=== PATIENT | female | born 1995 | race Hispanic/Latino ===

== ENCOUNTER → 2021-12-06 11:42 | Outpatient (CLI) | payer OTHER, SELFPAY ==
[2021-12-06 12:24] LABS: Fetal Fibronectin Negative
== END ==
PROVIDERS: Visit Provider Obstetrics & Gynecology
DX: Z34.83 Encounter for supervision of other normal pregnancy, third trimester (principal); Z3A.31 31 weeks gestation of pregnancy
CPT/HCPCS: 82731

== ENCOUNTER 2021-12-06 12:03 | Emergency (ER) | payer OTHER, SELFPAY ==
[2021-12-06] VITALS (9 sets, daily range): BP systolic 104–139; BP diastolic 61–82; PULSE 85–102; RESP 15; TEMP 36.6; O2SAT 95–100; BMI 37.8
--- NOTE | 2021-12-06 12:20 | ED_ITS ---
HPI - General Adult General Chief complaint: OB/Uterine Contractions Stated complaint: 31.5 weeks , pressure and back pain Time Seen by Provider: 12/06/21 12:13 Source: patient Mode of arrival: Ambulatory Limitations: no limitations History of Present Illness HPI narrative: Patient is an otherwise healthy 26-year-old female. She is a at approximately 31.5 weeks EGA. She is new to the area. Her 1st ended with premature rupture membranes and a and premature . Her son is 2 years old at home. She reports no other medical problems. Takes vitamins. Does note that over the past several days she has had cramping and lower back pain. She was seen prior to this visit at the OB department for 1st visit. Ultrasound was performed. She does have a IUP in head-down position. This was a bedside ultrasound. OB providers concerned about her presentation and feel that she does need transferred to facility for further evaluation. There is no bed availability in our Labor and delivery at this hospital. Patient requires observation until transfer can be established. This is in coordination with Dr. Hinojosa kennel manager dog track. Related Data Home Medications Medication Instructions Recorded Confirmed prenat.vits,claudia,[id number] 1 tab PO DAILY 12/01/21 12/06/21 Allergies Allergy/AdvReac Type Severity Reaction Status Date / Time Penicillins Allergy Mild Rash Verified 12/06/21 12:19 Review of Systems Constitutional Constitutional: Denies fever(s) and Denies headache(s) ENT Ears, Nose, Mouth, and Throat: Denies headache(s) Cardiovascular Cardiovascular: Reports system reviewed and no additional complaints, except as documented Respiratory Respiratory: Reports system reviewed and no additional complaints, except as documented Gastrointestinal Comments: Abdominal cramping Genitourinary Genitourinary: Denies dysuria Musculoskeletal Musculoskeletal: Reports back pain Integumentary/Breasts Skin/Breast: Reports system reviewed and no additional complaints, except as documented Neurologic Neurologic: Denies headache(s) Hematologic/Lymphatic On Anticoagulants: No Patient History Medical History Anxiety Bicornuate uterus Depression Gastric reflux Gastritis delivery UTI (urinary tract infection) Surgical History History of Family History Mother Diabetes mellitus Hypertension Social History marital status: number of children: 1 household members: spouse and children housing: house pets and animals: Yes (Dogs) education level: high school occupational status: unemployed current occupational exposures/hazards: No seatbelt use: always water heater temp set < 120 deg: Yes working smoke detector in home: Yes fire extinguisher in home: No carbon monox detector in home: Yes firearms in home: No do you feel safe at home: Yes Smoking Status: Never smoker second hand exposure: No alcohol intake: former substance use type: does not use during the past year weight has: decreased > 10 lbs well-balanced diet: daily or most days daily servings fruits/ve-4 caffeine: No Type(s) of exercise: walking Smoking Status: Never smoker Exam Initial Vital Signs Initial Vital Signs: Vital Signs Temperature 97.8 F 12/06/21 12:12 Pulse Rate 92 H 12/06/21 12:12 Respiratory Rate 15 12/06/21 12:12 Blood Pressure 139/82 12/06/21 12:12 Pulse Oximetry 97 12/06/21 12:12 Const General: cooperative, comfortable and well developed HENMT Head: normal to inspection and normocephalic Resp Effort & Inspection: normal respiratory effort Auscultation: clear to auscultation bilaterally Cardio Rate: regular rate Rhythm: regular rhythm GI Other: Gravid abdomen, Skin General: no rashes or lesions noted Neuro General: patient alert, patient awake and moves all extremities Extrem General: normal to inspection Psych Appearance: grossly normal and well kempt Course Orders Ordered: Discontinued Medications Lactated Ringer's (Lactated Ringers) 1,000 mls @ 125 mls/hr IV CONT REINA Last Infusion: 12/06/21 15:47 Dose: 0 mls/hr Documented by: Admin: 12/06/21 12:47 Dose: 125 mls/hr Documented by: YUKI Vital Signs Vital signs: Vital Signs - 8 hr 12/06/21 12:12 Temperature 97.8 F Pulse Rate 92 H Respiratory Rate 15 Blood Pressure 139/82 Pulse Oximetry 97 Medical Decision Making Lab Data Result diagrams: 12/06/21 12:15 12/06/21 12:15 Labs: Lab Results 12/06/21 12/06/21 12/06/21 Range/Units 12:15 12:15 12:15 WBC 8.3 (4.5-11.0) X10^3/uL RBC 4.46 (4.0-5.2) X10^6/uL Hgb 12.0 (12.0-16.0) g/dL Hct 36.7 (36-46) % MCV 82.3 (80-100) fL MCH 27.0 (26-34) PG MCHC 32.8 (30-36) % RDW 14.5 (11.6-14.8) % Plt Count 217 (150-400) X10^3/uL Neut % (Auto) 80.4 H (50-75) % Lymph % (Auto) 15.4 L (25-40) % [place] % (Auto) 3.7 (3-14) % Eos % (Auto) 0.1 L (2-4) % Baso % (Auto) 0.4 (0-2) % Neut # (Auto) 6700 (7338-7222) /uL Lymph # (Auto) 1300 (1638-2037) /uL [place] # (Auto) 300 (0-900) /uL Eos # (Auto) 0 (0-450) /uL Baso # (Auto) 0 (0-100) /uL Sodium 136 L (137-145) mmol/L Potassium 3.7 (3.4-5.1) mmol/L Chloride 106 (98-107) mmol/L Carbon Dioxide 25 (22-32) mmol/L BUN 7 (7-17) mg/dL Creatinine 0.36 L (0.52-1.04) mg/dL Estimated GFR > 60.0 (>60) mL/min BUN/Creatinine Ratio 19.4 (6-22) Glucose 112 H (70-100) mg/dL Calcium 9.4 (8.4-10.2) mg/dL Group B Strep (PCR) Blood Type O Positive Antibody Screen Negative 12/06/21 Range/Units 13:10 WBC (4.5-11.0) X10^3/uL RBC (4.0-5.2) X10^6/uL Hgb (12.0-16.0) g/dL Hct (36-46) % MCV (80-100) fL MCH (26-34) PG MCHC (30-36) % RDW (11.6-14.8) % Plt Count (150-400) X10^3/uL Neut % (Auto) (50-75) % Lymph % (Auto) (25-40) % [place] % (Auto) (3-14) % Eos % (Auto) (2-4) % Baso % (Auto) (0-2) % Neut # (Auto) (3374-5306) /uL Lymph # (Auto) (8264-9737) /uL [place] # (Auto) (0-900) /uL Eos # (Auto) (0-450) /uL Baso # (Auto) (0-100) /uL Sodium (137-145) mmol/L Potassium (3.4-5.1) mmol/L Chloride (98-107) mmol/L Carbon Dioxide (22-32) mmol/L BUN (7-17) mg/dL Creatinine (0.52-1.04) mg/dL Estimated GFR (>60) mL/min BUN/Creatinine Ratio (6-22) Glucose (70-100) mg/dL Calcium (8.4-10.2) mg/dL Group B Strep (PCR) Pos for grp b strep H Blood Type Antibody Screen Urine Dip Bedside Urine Glucose Negative Bedside Urine Bilirubin - Negative Bedside Urine Ketone - Negative Urine Specific [place] 1.025 Bedside Urine Occult Blood - Negative Bedside Urine pH 6.0 Bedside Urine Protein - Negative Bedside Urine Urobilinogen - Negative Bedside Urine Nitrite - Negative Bedside Urine Leukocytes - Negative Esterase Point of care testing: Urine Dip Bedside Urine Glucose Negative Bedside Urine Bilirubin - Negative Bedside Urine Ketone - Negative Urine Specific [place] 1.025 Bedside Urine Occult Blood - Negative Bedside Urine pH 6.0 Bedside Urine Protein - Negative Bedside Urine Urobilinogen - Negative Bedside Urine Nitrite - Negative Bedside Urine Leukocytes - Negative Esterase MDM Narrative Medical decision making narrative: Patient was observed here in the emergency department while Dr. Hinojosa contacted Maternal- medicine specialist at outside facility. Patient was stable throughout her stay. She was re-evaluated by Dr. hinojosa. Final decision was to discharge patient home with follow-up next week. Please see Dr. Hinojosa note that accompanies this visit. Discharge Plan Departure Patient Disposition: Home Clinical Impression: Instructions: DI for -- Discomforts and Remedies Activity Restrictions/Additional Instructions: Please contact Dr. Hinojosa office for a follow-up within a week like she discussed with you. Return to the emergency department for any new or worsening symptoms. Prescriptions: No Action prenat.vits,claudia,[id number] Tablet 1 tab PO DAILY 0RF Referrals: Mag Hinojosa MD [Primary Care Provider] -
[2021-12-06 12:36] LABS: Add Manual Diff / Slide Review NO; Basophils Absolute Auto 0 /uL (0-100); Basophils Percent Auto 0.4 % (0-2); Eosinophils Absolute Auto 0 /uL (0-450); Eosinophils Percent Auto 0.1 % (2-4); Hematocrit 36.7 % (36-46); Lymphocytes Absolute Auto 1300 /uL (1100-4500); Lymphocytes Percent Auto 15.4 % (25-40); Mean Corpuscular HGB Conc 32.8 % (30-36); Mean Corpuscular Volume 82.3 fL (80-100); Monocytes Absolute Auto 300 /uL (0-900); Monocytes Percent Auto 3.7 % (3-14); Neutrophils Absolute Auto 6700 /uL (1500-7000); Neutrophils Percent Auto 80.4 % (50-75); Platelet Count 217 X10^3/uL (150-400); Red Blood Cell Count 4.46 X10^6/uL (4.0-5.2); Red Cell Distribution Width 14.5 % (11.6-14.8); White Blood Cell Count 8.3 X10^3/uL (4.5-11.0)
[2021-12-06] MEDS: LACTATED RINGERS 1,000 ML 125 ML IV (12:47)
[2021-12-06 12:48] LABS: BUN Creatinine Ratio 19.4 (6-22); Blood Urea Nitrogen 7 mg/dL (7-17); Calcium 9.4 mg/dL (8.4-10.2); Carbon Dioxide 25 mmol/L (22-32); Chloride 106 mmol/L (98-107); Estimated Glomerular Filt Rate > 60.0 mL/min (>60); Glucose 112 mg/dL (70-100); HEMOLYSIS < 15 (0-50); Potassium 3.7 mmol/L (3.4-5.1); Sodium 136 mmol/L (137-145)
[2021-12-06 15:02] LABS: Strep Grp B PCR POS for Grp B Strep
--- NOTE | 2021-12-06 17:48 | P.CONS_ITS ---
History of Present Illness Consult details Date Patient Seen: 12/06/21 Time Patient Seen: 15:30 Chief complaint: 31.5 weeks , pressure and back pain Reason for consult: Managing patient in ED due to full center Requesting provider: Rob Culp Narrative: This patient is a 26yo @31+5 who presented to OB clinic to transfer care, reporting low back cramping, abdominal pain, and pelvic pressure increasing in intensity for 3 days. She has a history of unexplained PPROM at 36 weeks with CS for breech, and has a known bicornuate uterus. In clinic, the patient was found to have cervix measuring 2.9cm on TVUS at rest, but 1.25cm on valsalva. She denied vaginal bleeding, loss of fluid, or decreased movement. She reported recent GI upset that has now resolved, and fatigue in the setting of a recent move with a toddler. A previously collected FFN was sent, a BPP was 8/8 with MARY ANNE of 13, and cephalic presentation, and a cervical exam was digitally 0/75/-3. The next step in patient evaluation was prolonged monitoring and toco, along with IV fluids and labs. The labor floor could not safely accommodate this patient and would not be able to for several hours, and so arrangements were made to transfer the patient to the emergency department with the assistance of Dr. Culp and their staff. Meds Home Medications and Allergies Home Medications Medication Instructions Recorded Confirmed Type prenat.vits,claudia,[id number]-[id number] 1 tab PO DAILY 12/01/21 12/06/21 History Allergies Allergy/AdvReac Type Severity Reaction Status Date / Time Penicillins Allergy Mild Rash Verified 12/06/21 12:19 Review of Systems Constitutional Constitutional: Reports as per HPI Gastrointestinal Gastrointestinal: Reports as per HPI Genitourinary Genitourinary: Reports as per HPI Exam Vital Signs (past 8 hours): - FHR cat 1, baseline 135, has 15x15 accels. 3 ctx noted over 4 hours, not palpated by patient. Cervix unchanged if not more posterior, 0/75/-3. 12/06/21 12:12 12/06/21 12:29 12/06/21 12:30 Temperature 97.8 F Pulse Rate 92 H 102 H 102 H Respiratory Rate 15 Blood Pressure 139/82 117/69 Pulse Oximetry 97 98 99 12/06/21 13:00 12/06/21 13:11 12/06/21 13:30 Temperature Pulse Rate 97 H 87 87 Respiratory Rate Blood Pressure 108/63 104/63 107/61 Pulse Oximetry 98 97 95 12/06/21 14:00 12/06/21 14:30 12/06/21 15:47 Temperature Pulse Rate 89 85 85 Respiratory Rate Blood Pressure 112/71 109/68 113/70 Pulse Oximetry 97 99 100 Oxygen Delivery Method Room Air GI Palpation: soft and No tender Objective Labs Result Diagrams: 12/06/21 12:15 12/06/21 12:15 Labs: Laboratory Results - last 24 hr 12/06/21 12/06/21 12/06/21 12:15 12:15 12:15 WBC 8.3 RBC 4.46 Hgb 12.0 Hct 36.7 MCV 82.3 MCH 27.0 MCHC 32.8 RDW 14.5 Plt Count 217 Neut % (Auto) 80.4 H Lymph % (Auto) 15.4 L [place] % (Auto) 3.7 Eos % (Auto) 0.1 L Baso % (Auto) 0.4 Neut # (Auto) 6700 Lymph # (Auto) 1300 [place] # (Auto) 300 Eos # (Auto) 0 Baso # (Auto) 0 Sodium 136 L Potassium 3.7 Chloride 106 Carbon Dioxide 25 BUN 7 Creatinine 0.36 L Estimated GFR > 60.0 BUN/Creatinine Ratio 19.4 Glucose 112 H Calcium 9.4 Group B Strep (PCR) Blood Type O Positive Antibody Screen Negative 12/06/21 13:10 WBC RBC Hgb Hct MCV MCH MCHC RDW Plt Count Neut % (Auto) Lymph % (Auto) [place] % (Auto) Eos % (Auto) Baso % (Auto) Neut # (Auto) Lymph # (Auto) [place] # (Auto) Eos # (Auto) Baso # (Auto) Sodium Potassium Chloride Carbon Dioxide BUN Creatinine Estimated GFR BUN/Creatinine Ratio Glucose Calcium Group B Strep (PCR) Pos for grp b strep H Blood Type Antibody Screen PFSH Medical History Anxiety Bicornuate uterus Depression Gastric reflux Gastritis delivery UTI (urinary tract infection) Surgical History History of Family History Mother Diabetes mellitus Hypertension Social History marital status: number of children: 1 household members: spouse and children housing: house pets and animals: Yes (Dogs) education level: high school occupational status: unemployed current occupational exposures/hazards: No Safety seatbelt use: always water heater temp set < 120 deg: Yes working smoke detector in home: Yes fire extinguisher in home: No carbon monox detector in home: Yes firearms in home: No do you feel safe at home: Yes Tobacco & Substance Use Smoking Status: Never smoker second hand exposure: No alcohol intake: former substance use type: does not use Diet and Exercise during the past year weight has: decreased > 10 lbs well-balanced diet: daily or most days daily servings fruits/ve-4 caffeine: No Type(s) of exercise: walking Assessment & Plan Assessment and plan (1) : Problem details: This patient presented to the clinic with a history of PPROM, pelvic pressure, back pain, and a shortened cervix. Due to no availability of space or nursing staff on the labor floor, she was observed in the emergency department for four hours, with continuous monitoring and IV fluids. An FFN was negative, she was not appreciably tamar, her cervix remained unchanged, and her symptoms resolved. Her case was discussed with the [facility] tomahawk weapon system operator, who recommended discharge home and did not recommend a course of betamethasone. labor and antepartum precautions were stressed to the patient, and we discussed pelvic rest and as much rest and avoidance of lifting as possible. All questions were answered, and the patient vocalized understanding and is in agreement with the plan. Qualifiers: Weeks of gestation: 31 weeks Qualified Code(s): Z3A.31 - 31 weeks gestation of Status: Acute Time Spent With Patient Critical Care time: I spent a total of [] minutes of critical care time on this patient's care today; this time is exclusive of procedural time.
== END 2021-12-06 15:47 | disposition home or self-care (01) ==
PROVIDERS: Emergency Provider Emergency Medicine; PCP Obstetrics & Gynecology
DX: O26.893 Other specified pregnancy related conditions, third trimester (principal); M54.50 Low back pain, unspecified; R10.9 Unspecified abdominal pain; Z3A.31 31 weeks gestation of pregnancy; Z34.83 Encounter for supervision of other normal pregnancy, third trimester
CPT/HCPCS: 36415; 80048; 81003; 82731; 85025; 86850; 86900; 86901; 87186; 87653; 96360; 96361; 99284

== ENCOUNTER 2021-12-16 00:50 | Inpatient (IN) | payer OTHER, SELFPAY ==
[2021-12-16] VITALS (7 sets, daily range): BP systolic 90–149; BP diastolic 41–94; PULSE 98–138; RESP 14–22; TEMP 36.2; O2SAT 96–97
[2021-12-16 01:35] LABS: Appearance Urine UA CLEAR; Bilirubin Urine UA NEGATIVE (NEGATIVE); Color Urine UA YELLOW; Glucose Urine UA NEGATIVE (Negative); Ketones Urine UA NEGATIVE (NEGATIVE); Leukocyte Esterase Urine UA NEGATIVE (NEGATIVE); Nitrite Urine UA NEGATIVE (Negative); Occult Blood Urine UA NEGATIVE (Negative); Protein Urine UA NEGATIVE (Negative); Specific Gravity Urine UA 1.015 (1.000-1.035); Urobilinogen Urine UA 0.2 E.U./dL (0.2)
[2021-12-16] MEDS: LACTATED RINGERS 1,000 ML 1000 ML IV ×2 (01:47→04:09)
[2021-12-16 02:39] LABS: Add Manual Diff / Slide Review NO; Basophils Absolute Auto 0 /uL (0-100); Basophils Percent Auto 0.3 % (0-2); Eosinophils Absolute Auto 0 /uL (0-450); Eosinophils Percent Auto 0.2 % (2-4); Hematocrit 35.1 % (36-46); Hemoglobin 11.5 g/dL (12.0-16.0); Lymphocytes Absolute Auto 1400 /uL (1100-4500); Lymphocytes Percent Auto 16.2 % (25-40); Mean Corpuscular HGB Conc 32.7 % (30-36); Mean Corpuscular Hemoglobin 26.8 PG (26-34); Mean Corpuscular Volume 82.1 fL (80-100); Monocytes Absolute Auto 400 /uL (0-900); Monocytes Percent Auto 4.2 % (3-14); Neutrophils Absolute Auto 6700 /uL (1500-7000); Neutrophils Percent Auto 79.1 % (50-75); Platelet Count 181 X10^3/uL (150-400); Red Blood Cell Count 4.28 X10^6/uL (4.0-5.2); Red Cell Distribution Width 14.8 % (11.6-14.8); White Blood Cell Count 8.5 X10^3/uL (4.5-11.0)
--- NOTE | 2021-12-16 02:41 | P.HPOB_ITS ---
OB HPI Date/Time Date of admission: 12/16/21 Date Patient Seen: 12/16/21 Time Patient Seen: 02:20 History of Present Condition Chief complaint: EMERGENT REPEAT CATA Calculator Estimated Delivery Date Method Current WG Current Estimate 02/02/22 Ultrasound #1 33w 2d Other Estimates 01/26/22 LMP (Uncertain) 34w 2d Estimated Gestational Age (weeks): 33 : 2 Para: 1 care: good care Dating criteria OB: based on 1st trimester US only Ultrasounds: normal mid trimester US Obstetrical complications: other Medical complications OB: none Narrative: This patient is a 26yo [id number], presenting at 33+1 with two days of worsening lower abdominal pain and pressure and a rapidly worsening cat 2 EFM necessitating emergent section. The patient initially transferred to our clinic for care at 31 weeks gestation, and at that visit was found to have been tamar for two days and have a shortened cervix. She initially proved to not be in labor and was discharged home with precautions to return immediately with any abnormal symptoms. She reports that the episode of pain that resulted in delivery started on Sunday, 12/15. She took tylenol at home to some effect, and did call the after hours call line but fell asleep and did not present for evaluation. She presented to L&D shortly before delivery as the pain had become more severe, with abdominal tenderness though no vaginal bleeding at that time. She reports good movement throughout, no dizziness or chest pain, and no abdominal trauma. On presentation to L&D, she began having variable decelerations with rapidly worsening status that resulted in emergent deli very. She had a large uterine rupture as described in the operative report, but no significant hemorrhage and baby did well. Indications Operative indications ( section): distress Preadmission Labs Last OB Lab Results: Blood Type O Positive 12/16/21 02:15 12/16/21 Antibody Screen Negative 12/16/21 02:15 12/16/21 Hematocrit 27.2 % (36-46) L 12/16/21 16:00 12/16/21 Hemoglobin 9.1 g/dL (12.0-16.0) L 12/16/21 16:00 12/16/21 Group B Streptococcus (PCR) Pos for grp b strep H 12/06/21 13:10 12/06/21 Prior (ies) Past Pregnancies Del. Date GA/Weeks Labor Lgth Wt Sex Route Outcome Anesthesia Place Delv Breastfeed Preg Comp Name 05/28/19 36 0 5 lb 13 oz Male live - spina l [place] 7 delivery other [place] Delivery Date: 05/28/19 Last Updated by: Geovanna Carson RJosiahNJosiah Bicornuate Uterus, Premature SROM , breech Evaluation Evaluation Baseline heart rate: 145 Comments: Rapid worsening of status during evaluation, see above PFSH Medical History Anxiety Bicornuate uterus Depression Gastric reflux Gastritis delivery UTI (urinary tract infection) Surgical History History of Family History Mother Diabetes mellitus Hypertension Social History marital status: number of children: 1 household members: spouse and children housing: house pets and animals: Yes (Dogs) education level: high school occupational status: unemployed current occupational exposures/hazards: No seatbelt use: always water heater temp set < 120 deg: Yes working smoke detector in home: Yes fire extinguisher in home: No carbon monox detector in home: Yes firearms in home: No do you feel safe at home: Yes Smoking Status: Never smoker second hand exposure: No alcohol intake: former substance use type: does not use during the past year weight has: decreased > 10 lbs well-balanced diet: daily or most days daily servings fruits/ve-4 caffeine: No Type(s) of exercise: walking Meds Home Medications and Allergies Home Medications Medication Instructions Recorded Confirmed Type prenat.vits,claudia,jpj-pbkb-fdiqs 1 tab PO DAILY 12/01/21 12/16/21 History ferrous sulfate 325 mg (65 mg 325 mg PO DAILY #30 tab 12/16/21 Rx iron) tablet oxycodone 5 mg tablet 5 mg PO Q6H PRN #20 tab 12/16/21 Rx Allergies Allergy/AdvReac Type Severity Reaction Status Date / Time Penicillins Allergy Mild Rash Verified 12/12/21 08:54 Review of Systems Constitutional Constitutional: Reports system reviewed and no additional complaints, except as documented Gastrointestinal Gastrointestinal: Reports as per [facility] Genitourinary Genitourinary: Reports as per [facility] OB Exam Narrative Exam Narrative: Patient not visibly uncomfortable on inital eval, in significant pain just prior to CS with rapid deterioration of overall status consistent with eventual intraop findings. GI Palpation: Yes soft and Yes tender (worsening suprapubic tenderness just prior to emergent transfer to OR) Other: vaginal bleeding not noted initially, started as patient was being positioned in OR. Objective Labs Result Diagrams: 12/16/21 16:00 Labs: Laboratory Results - last 24 hr 12/16/21 12/16/21 01:15 02:15 WBC 8.5 RBC 4.28 Hgb 11.5 L Hct 35.1 L MCV 82.1 MCH 26.8 MCHC 32.7 RDW 14.8 Plt Count 181 Neut % (Auto) 79.1 H Lymph % (Auto) 16.2 L [place] % (Auto) 4.2 Eos % (Auto) 0.2 L Baso % (Auto) 0.3 Neut # (Auto) 6700 Lymph # (Auto) 1400 [place] # (Auto) 400 Eos # (Auto) 0 Baso # (Auto) 0 Urine Color Yellow Urine Appearance Clear Urine pH 6.0 Ur Specific [place] 1.015 Urine Protein Negative Urine Glucose (UA) Negative Urine Ketones Negative Urine Occult Blood Negative Urine Nitrate Negative Urine Bilirubin Negative Urine Urobilinogen 0.2 Ur Leukocyte Esterase Negative Assessment and Plan Assessment and Plan Assessment and Plan narrative: This patient presented with worsening abdominal pain. Though status was initially reassuring with moderate variability on presentation, the rapid worsening of status necessitated an emergent section. The patient did well intraoperatively with no significant hemorrhage despite a large uterine rupture. Baby did well, requiring resuscitation given gestational age but with apgars of 6 and 8 and a umbilical cord pH of 7.15, base excess -7 and pCO2 of 61, reflecting an acute respiratory acidosis consistent with her presentation. The patient was taken to PACU in stable condition, and will be followed closely for complications including anemia and ileus. I discussed with the patient at length in PACU that I recommend strongly that she have no further pregnancies, as the fundal location of the rupture in particular makes her risk of repeat uterine rupture well over 50% in subsequent pregnancies. - CBC 4 hours postop - Ongoing IVF - Artis in place
[2021-12-16 02:47] LABS: COVID19 -Nasal RAPID Negative (Negative)
[2021-12-16] MEDS: CEFAZOLIN 2 GM/20 ML SYRINGE IV (03:05)
[2021-12-16] MEDS: TRANEXAMIC ACID 1,000 MG in SODIUM CHLORIDE 0.9% 100 ML 200 ML IV (03:40)
--- NOTE | 2021-12-16 03:41 | SUR.OPER ---
Supine on Padded OR bed, head on pillow, safety belt at thigh, arms secured on padded arm boards at <90 degrees abduction. Bump under right buttock. Legs uncrossed with pillow under knees, gel pad to heels, tape over blanket to lower legs.
--- NOTE | 2021-12-16 03:56 | SUR.OPER ---
viable male delivered at 0310. placenta sent with L&D nurse. unable to obtain cord blood. See physician dictation of procedure.
--- NOTE | 2021-12-16 04:39 | P.OP_ITS ---
Operative Date/Time/Diagnoses Date of procedure: 12/16/21 Time of procedure: 03:00 Pre-op diagnosis: cat 2 EFM Post-op diagnosis: other (uterine rupture) Procedure & Clinicians Procedure: emergent repeat section Same procedure as scheduled: Yes Indications: progressively worsening status Surgeon: Mag Hinojosa Metal Building Assembler: Fozia Mcmullen Reason for Metal Building Assembler: retraction, repair of hemorrhaging uterine rupture Anesthesia Type: Spinal Operative Notes Findings: Right horn of uterus spontaneously rupture from cornua, down side to posterior cervix. Placenta partially in abdomen. Normal tubes and ovaries. Normal left horn of bicornuate uterus. Closure Type: primary Specimen(s): cord blood and cord pH Intraoperative meds administered: Tranexamic acid Estimated Blood Loss (mL): 500 Procedure in detail: The patient presented to labor and delivery after two days of lower abdominal pain, slowly worsening as detailed in her H&P. status was initially reassuring, but the EFM developed rapidly worsening declerations and she was emergently transferred to the operating room. A spinal was able to be placed rapidly, avoiding general anesthesia to mitigate effects on the premature after delivery. The patient was laid supine, prepped with betadine, a daniel placed, and sterile drape applied in the usual fashion. A Pfannenstiel skin incision was made with a scalpel and carried through to the underlying layer of fascia. The fascia was incised in the midline and the incision extended laterally, sharply. The superior aspect of this incision was grasped with Joann clamps, elevated, and the underlying rectus muscles dissected off sharply. Attention was then turned to the inferior aspect of this incision which, in a similar fashion, was grasped, tented up with the Joann clamps, and the rectus muscles dissected off sharply. The rectus muscles were then in the midline, and the peritoneum entered bluntly. The medial aspect of the right uterine horn was noted to have spontaneously ruptured from cornua to cervix, with partial extrusion of the placenta into the abdomen. The vertex could be felt through this rent, and was grasped and delivered. The cord was clamped and cut immediately, and the infant handed to the waiting pediatrics team. A portion of cord was collected for a cord pH. The placenta was removed manually, and the uterus exteriorized and cleared of all clots and debris. After careful examination, the uterus was closed in a layered fashion with 4-0 chromic for the endometrium, then 0 chromic for the myometrium and serosa. A second layer of 0 vicryl was placed where necessary for hemostasis. Careful inspection revealed normal tubes and ovaries, with a bicornuate uterus as previously diagnosed. Interceed was placed over the uterine repair. The peritoneum was closed with 3-0 Vicryl, and the fascia reapproximated with 0 Vicryl in a running fashion. The subcutaneous layer was placed with 3 0 Vicryl in an interrupted fashion and the skin was closed with 4-0 biosyn in a running fashion. The patient tolerated the procedure well. Sponge lap and needle counts were correct x2. 2 g of Ancef were given at commencement of the case as feasible. The patient was taken to the recovery room in stable condition. IVF: 2L LR EBL 500ccs UOP 150ccs of yellow urine Complications: other (uterine rupture) Baby 1: Gender: Male Presentation: vertex Placental Delivery Description: Manual Removal score (1 min): 6 score (5 min): 8 weight: 4 lb 10 oz Post-operative Condition: stable Disposition: PACU Aftercare: routine postop
[2021-12-16] MEDS: OXYCODONE IR 5 MG TABLET PO (08:13)
[2021-12-16] MEDS: ONDANSETRON 4 MG/2 ML INJ IV (08:14)
[2021-12-16 09:25] LABS: Add Manual Diff / Slide Review NO; Basophils Absolute Auto 0 /uL (0-100); Basophils Percent Auto 0.1 % (0-2); Eosinophils Absolute Auto 0 /uL (0-450); Hematocrit 29.8 % (36-46); Hemoglobin 9.8 g/dL (12.0-16.0); Lymphocytes Absolute Auto 600 /uL (1100-4500); Lymphocytes Percent Auto 6.5 % (25-40); Mean Corpuscular HGB Conc 32.8 % (30-36); Mean Corpuscular Volume 82.4 fL (80-100); Monocytes Absolute Auto 300 /uL (0-900); Monocytes Percent Auto 3.1 % (3-14); Neutrophils Absolute Auto 8400 /uL (1500-7000); Neutrophils Percent Auto 90.3 % (50-75); Platelet Count 165 X10^3/uL (150-400); Red Blood Cell Count 3.62 X10^6/uL (4.0-5.2); White Blood Cell Count 9.3 X10^3/uL (4.5-11.0)
[2021-12-16] MEDS: KETOROLAC 30 MG/ML VIAL IV ×2 (10:46→18:20)
[2021-12-16] MEDS: METOCLOPRAMIDE 10 MG/2 ML INJ IV (10:48)
[2021-12-16] MEDS: LACTATED RINGERS 1,000 ML 100 ML IV (13:31)
[2021-12-16] MEDS: LANOLIN OINT 7 GM 1 APPLIC TOP (14:19)
[2021-12-16 16:05] LABS: Add Manual Diff / Slide Review NO; Basophils Absolute Auto 0 /uL (0-100); Basophils Percent Auto 0.1 % (0-2); Eosinophils Absolute Auto 0 /uL (0-450); Hematocrit 27.2 % (36-46); Hemoglobin 9.1 g/dL (12.0-16.0); Lymphocytes Absolute Auto 800 /uL (1100-4500); Lymphocytes Percent Auto 9.4 % (25-40); Mean Corpuscular HGB Conc 33.5 % (30-36); Mean Corpuscular Hemoglobin 27.4 PG (26-34); Mean Corpuscular Volume 81.7 fL (80-100); Monocytes Absolute Auto 400 /uL (0-900); Monocytes Percent Auto 4.3 % (3-14); Neutrophils Absolute Auto 7500 /uL (1500-7000); Neutrophils Percent Auto 86.2 % (50-75); Platelet Count 160 X10^3/uL (150-400); Red Blood Cell Count 3.33 X10^6/uL (4.0-5.2); Red Cell Distribution Width 14.5 % (11.6-14.8); White Blood Cell Count 8.7 X10^3/uL (4.5-11.0)
[2021-12-16] MEDS: ACETAMINOPHEN 325 MG TABLET 650 MG PO (18:20)
[2021-12-17] MEDS: IBUPROFEN 600 MG TABLET PO ×4 (00:22→18:16)
[2021-12-17] MEDS: ACETAMINOPHEN 325 MG TABLET 650 MG PO ×4 (00:22→18:16)
[2021-12-17] MEDS: OXYCODONE IR 5 MG TABLET PO ×2 (00:23→05:44)
--- NOTE | 2021-12-17 09:05 | P.PNOB_ITS ---
Subjective - OB Subjective Patient comments: no pain well controlled baby status: NICU ([facility]) Summers feeding status: pumping and storing Narrative: Patient's pain is not yet under good control and she is extremely uncomfortable with ambulation. As a result she has not been up much and although offered discharge today, the patient would prefer to stay another day to establish better pain management and be sure that she is going to be able to ambulate independently once discharged. Date Patient Seen: 12/17/21 Time Patient Seen: 09:05 Exam Vital Signs (past 8 hours): Oxygen Delivery Method Room Air Const General: cooperative and well developed Nutritional Appearance: overweight Orientation: alert and oriented x3 HENMT Head: normal to inspection Face and sinus: face symmetric Eyes General: appearance normal, both eyes and all related structures Conjunctivae: conjunctivae normal Sclera: sclerae normal EOM: EOM intact bilaterally Neck Neck: normal visual inspection Resp Effort & Inspection: normal respiratory effort and able to speak in complete sentences Auscultation: clear to auscultation bilaterally Cardio Rate: regular rate Rhythm: regular rhythm Heart Sounds: S1 normal, S2 normal and no murmurs GI Inspection: normal to inspection and incision (Dressing is clean and dry) Palpation: soft, no hepatosplenomegaly and tender (Diffuse lower abdominal, moderate) Skin General: no rashes or lesions noted Extrem General: no calf tenderness Psych Appearance: grossly normal Mental Status: mental status grossly normal Speech and Movement: speech and movement normal Mood: congruent mood Affect: normal affect Attitude: cooperative Thought Process: normal Thought Content: normal Judgment: judgment good Objective Labs Result Diagrams: 12/16/21 16:00 Labs: Laboratory Results - last 24 hr 12/16/21 12/16/21 09:05 16:00 WBC 9.3 8.7 RBC 3.62 L 3.33 L Hgb 9.8 L 9.1 L Hct 29.8 L 27.2 L MCV 82.4 81.7 MCH 27.0 27.4 MCHC 32.8 33.5 RDW 15.0 H 14.5 Plt Count 165 160 Neut % (Auto) 90.3 H 86.2 H Lymph % (Auto) 6.5 L 9.4 L [place] % (Auto) 3.1 4.3 Eos % (Auto) 0.0 L 0.0 L Baso % (Auto) 0.1 0.1 Neut # (Auto) 8400 H 7500 H Lymph # (Auto) 600 L 800 L [place] # (Auto) 300 400 Eos # (Auto) 0 0 Baso # (Auto) 0 0 Assessment & Plan Plan day: 1 plan OB: routine postop care Comments: Venofer 200 mg IV Time Spent With Patient Time: Total time spent is greater than 50% in coordination of care (as documented) at patient's floor/unit and/or counseling patient: Time with patient: 15-24 minutes
[2021-12-17] MEDS: IRON SUCROSE 200 MG in SODIUM CHLORIDE 0.9% 100 ML 220 ML IV (09:37)
[2021-12-17] MEDS: OXYCODONE IR 10 MG TABLET PO ×3 (12:54→20:26)
[2021-12-17] MEDS: DOCUSATE 100 MG CAPSULE 200 MG PO ×2 (18:05→18:15)
[2021-12-17] MEDS: ONDANSETRON 4 MG/2 ML INJ IV (18:23)
[2021-12-18] MEDS: ACETAMINOPHEN 325 MG TABLET 650 MG PO ×2 (00:23→06:30)
[2021-12-18] MEDS: IBUPROFEN 600 MG TABLET PO ×2 (00:24→06:29)
[2021-12-18] MEDS: OXYCODONE IR 10 MG TABLET PO ×3 (00:24→11:12)
--- NOTE | 2021-12-18 07:36 | P.DS_ITS ---
Discharge Providers Provider Date of admission: 12/16/21 00:50 Discharge Date: 12/18/21 Primary care physician: Mag Hinojosa MD Consults: 12/16/21 05:01 Consult to Air Traffic Control Supervisor Routine Comment: Discharge provider: Asael Tran MD Summary Hospital Course Date Patient Seen: 12/18/21 Time Patient Seen: 09:51 Diagnoses: Intrauterine gestation, Gutierrez, 33 weeks, delivered Uterine rupture Bicornuate uterus Prior section Anemia due to blood loss Hospital Course: This patient is a 26yo [id number], presenting at 33+1 with two days of worsening lower abdominal pain and pressure and a rapidly worsening cat 2 EFM necessitat ing emergent section. The patient initially transferred to our clinic for care at 31 weeks gestation, and at that visit was found to have been tamar for two days and have a shortened cervix. She initially proved to not be in labor and was discharged home with precautions to return immediately with any abnormal symptoms. She reports that the episode of pain that resulted in delivery started on Sunday, 12/15. She took tylenol at home to some effect, and did call the after hours call line but fell asleep and did not present for evaluation. She presented to L&D shortly before delivery as the pain had become more severe, with abdominal tenderness though no vaginal bleeding at that time. She reports good movement throughout, no dizziness or chest pain, and no abdominal trauma. On presentation to L&D, she began having variable decelerations with rapidly worsening status that resulted in emergent delivery. She had a large uterine rupture as described in the operative report, but no significant hemorrhage and baby did well. Following her surgery, the patient has done well with the exception of some difficulty achieving pain control with oral medications. Her 1st postop morning hemoglobin and hematocrit were 9.1/27.2 which is consistent with observed operative losses. She is now ambulating independently, tolerating regular diet, has experienced return of bowel and bladder function, and her pain is well controlled with oral pain medications. She will be discharged at this time to home with medications to include oxycodone 5 mg tabs 1-2 p.o. q.4-6 hours as needed pain, ferrous sulfate 325 mg p.o. q.d. times 30 days, and Colace 100 mg p.o. b.i.d. as needed constipation. Prior to discharge she was counseled regarding precautionary symptoms, limitations of activity, medications, plans for follow-up which will be in 1 week for dressing removal. Peripartum Data Infant Delivery Method: Emergency Section [place] 1: Gender: Male Disposition of : NICU ([facility]) Discharge Diagnosis (1) Spontaneous rupture of uterus before onset of labor: Status: Acute (2) : Status: Acute Problem Details: This patient presented to the clinic with a history of PPROM, pelvic pressure, back pain, and a shortened cervix. Due to no availability of space or nursing staff on the labor floor, she was observed in the emergency department for four hours, with continuous monitoring and IV fluids. An FFN was negative, she was not appreciably tamar, her cervix remained unchanged, and her symptoms resolved. Her case was discussed with the [facility] resolution manager, who recommended dis charge home and did not recommend a course of betamethasone. labor and antepartum precautions were stressed to the patient, and we discussed pelvic rest and as much rest and avoidance of lifting as possible. All questions were answered, and the patient vocalized understanding and is in agreement with the plan. (3) Anemia due to blood loss: Status: Acute Status at Discharge Cognitive/behavioral status at discharge: oriented Functional status at discharge: independent ambulation Overall status at discharge: patient is progressing back to baseline Time Spent with Patient Time attestation: Total time spent providing and/or coordinating discharge services: Time spent: Less than 30 minutes Objective Labs Result Diagrams: 12/16/21 16:00 Exam Vital Signs (past 8 hours): Oxygen Delivery Method Room Air Const General: cooperative and comfortable Nutritional Appearance: overweight Orientation: alert and oriented x3 HENMT Head: normal to inspection Ears: hearing grossly normal bilaterally Face and sinus: face symmetric Eyes General: appearance normal, both eyes and all related structures Conjunctivae: conjunctivae normal Sclera: sclerae normal EOM: EOM intact bilaterally Neck Neck: normal visual inspection Resp Effort & Inspection: normal respiratory effort and able to speak in complete sentences Auscultation: clear to auscultation bilaterally Cardio Rate: regular rate Rhythm: regular rhythm Heart Sounds: S1 normal, S2 normal and no murmurs GI Inspection: normal to inspection Palpation: soft, no hepatosplenomegaly and mass (Firm, minimally tender fundus, U -5) Extrem General: no clubbing, cyanosis or edema and no calf tenderness Psych Appearance: grossly normal Mental Status: mental status grossly normal Speech and Movement: speech and movement normal Mood: congruent mood Affect: normal affect Attitude: cooperative Thought Process: normal Thought Content: normal Judgment: judgment good Discharge Plan Discharge Plan Patient Disposition: Home Provider Discharge Comment: Please review the written instructions he received when your discharge from the hospital. Your follow up appointment will be scheduled for 1 week at which time your dressing will be removed. If however you have any issues, concerns, or problems between now and then, please contact our office by phone or by portal message. Discharge orders & Medications Prescriptions: New oxycodone 5 mg tablet 5 mg PO Q6H PRN (Reason: pain) Qty: 20 0RF Rx Instructions: Take as often as every 6 hours for pain. ferrous sulfate 325 mg (65 mg iron) tablet 325 mg PO DAILY Qty: 30 3RF Rx Instructions: Take daily with food. oxycodone 5 mg tablet 5 mg PO Q6HR Qty: 20 0RF Continued prenat.vits,claudia,[id number] Tablet 1 tab PO DAILY 0RF Follow up/Referrals: Mag Hinojosa MD [Primary Care Provider] - 1 Week (incision check) Discharge Health Status Multidrug resistant organism: No MDRO Diet/Activity/Treatments Diet: Regular Activity: Nothing in the vagina for 6 weeks. Avoid lifting more than 10 pounds for 6 weeks. If you have increasing bleeding, fevers, chills, nausea, vomiting, pain, trouble breathing, or any other symptoms or concerns, call or come to the emergency department. Skin/Wound/Dressing Care Report to your healthcare provider any signs of infection, such as:: chills, fever, night sweats, increased pain, unusual drainage and unusual redness Dressing: To be removed at incision check. OK to shower. Visit Report/Discharge Packet Instructions: DI for , DI for and Nipple Soreness Discharge Data Primary Care Provider: Mag Hinojosa
[2021-12-18] MEDS: DOCUSATE 100 MG CAPSULE 200 MG PO (08:31)
[2021-12-18 10:25] VITALS: BP 106/77; PULSE 78; RESP 17; TEMP 36.6
[2021-12-18 11:12] VITALS: TEMP 36.6
== END 2021-12-18 11:50 | disposition home or self-care (01) | DRG 787 ==
PROVIDERS: Admitting Provider Obstetrics & Gynecology; PCP Obstetrics & Gynecology; Referring Provider Obstetrics & Gynecology; Visit Provider Obstetrics & Gynecology
PROC: 10D00Z1 Extraction of Products of Conception, Low, Open Approach (ICD-10-PCS; CPT 59514; principal; 2021-12-16 03:00)
DX: O71.03 Rupture of uterus before onset of labor, third trimester (principal); D62 Acute posthemorrhagic anemia; O77.9 Labor and delivery complicated by fetal stress, unspecified; O99.02 Anemia complicating childbirth; Z3A.33 33 weeks gestation of pregnancy; Z37.0 Single live birth; O34.03 Maternal care for unspecified congenital malformation of uterus, third trimester; Q51.3 Bicornate uterus; Z20.822 Contact with and (suspected) exposure to COVID-19
CPT/HCPCS: 36415; 59050; 59510; 59514; 59515; 81003; 85025; 86850; 86900; 86901; 87077; 87086; 87186; 87635; C9803; G0379; J0690; J1756; J1885; J2250; J2274; J2405; J2590; J2765

== ENCOUNTER → 2021-12-30 16:10 | Outpatient (CLI) | payer OTHER, SELFPAY ==
[2021-12-30 16:51] LABS: Appearance Urine UA CLOUDY; Bilirubin Urine UA NEGATIVE (NEGATIVE); Color Urine UA YELLOW; Glucose Urine UA NEGATIVE (Negative); Ketones Urine UA NEGATIVE (NEGATIVE); Leukocyte Esterase Urine UA 2+ (NEGATIVE); Nitrite Urine UA NEGATIVE (Negative); Occult Blood Urine UA 3+ (Negative); Protein Urine UA TRACE (Negative); Specific Gravity Urine UA 1.015 (1.000-1.035); Urobilinogen Urine UA 0.2 E.U./dL (0.2)
[2021-12-30 16:56] LABS: pH Urine UA 6.5 (4.5-8.0)
[2021-12-30 17:09] LABS: Bacteria Urine Few (2-10); Culture Indicated Urine Specimen Cultured; RBC Urine 30-100/HPF (0-5/HPF); Squamous Epithelial Cell Urine 1-5 /HPF (0-5/HPF); Transitional Epi Cells Urine 1-5/HPF (0-5/HPF); WBC Urine 5-10/HPF (0-5/HPF)
[2021-12-30 17:10] LABS: Add Manual Diff / Slide Review NO; Basophils Absolute Auto 0 /uL (0-100); Basophils Percent Auto 0.5 % (0-2); Eosinophils Absolute Auto 100 /uL (0-450); Eosinophils Percent Auto 0.8 % (2-4); Hematocrit 36.4 % (36-46); Hemoglobin 11.6 g/dL (12.0-16.0); Lymphocytes Absolute Auto 1600 /uL (1100-4500); Lymphocytes Percent Auto 25.7 % (25-40); Mean Corpuscular HGB Conc 31.8 % (30-36); Mean Corpuscular Hemoglobin 26.6 PG (26-34); Mean Corpuscular Volume 83.5 fL (80-100); Monocytes Absolute Auto 200 /uL (0-900); Neutrophils Absolute Auto 4200 /uL (1500-7000); Platelet Count 317 X10^3/uL (150-400); Red Blood Cell Count 4.36 X10^6/uL (4.0-5.2); Red Cell Distribution Width 15.8 % (11.6-14.8); White Blood Cell Count 6.1 X10^3/uL (4.5-11.0)
[2021-12-30 17:27] LABS: BUN Creatinine Ratio 21.1 (6-22); Blood Urea Nitrogen 15 mg/dL (7-17); Calcium 9.6 mg/dL (8.4-10.2); Carbon Dioxide 28 mmol/L (22-32); Chloride 104 mmol/L (98-107); Estimated Glomerular Filt Rate > 60.0 mL/min (>60); Glucose 91 mg/dL (70-100); HEMOLYSIS < 15 (0-50); Potassium 4.4 mmol/L (3.4-5.1); Sodium 140 mmol/L (137-145)
[2021-12-30 17:42] LABS: Free T4, Direct Thyroxine 1.23 ng/dL (0.78-2.19)
[2021-12-30 17:56] LABS: Thyroid Stimulating Hormone 0.705 uIU/mL (0.47-4.68)
== END ==
PROVIDERS: Referring Provider Obstetrics & Gynecology; Visit Provider Obstetrics & Gynecology
DX: R53.83 Other fatigue (principal); R61 Generalized hyperhidrosis; N39.0 Urinary tract infection, site not specified
CPT/HCPCS: 36415; 80048; 81003; 81015; 84439; 84443; 85025; 87077; 87086; 87186

== ENCOUNTER 2022-01-08 17:38 | Emergency (ER) | payer OTHER, SELFPAY ==
[2022-01-08 17:50] VITALS: BP 123/74; PULSE 72; RESP 16; TEMP 36.9; O2SAT 99; BMI 35.7
--- NOTE | 2022-01-08 18:34 | ED.FEMALEGU ---
HPI - Female Genitourinary General Chief complaint: Urogenital-Female Stated complaint: passing clots, sharp pain, just gave , chills Time Seen by Provider: 01/08/22 17:49 Mode of arrival: Ambulatory History of Present Illness HPI Narrative: 26-year-old female nonsmoker presents with a chief complaint of right lower quadrant pain in the passage of small amount of clots vaginally over the past day or 2. Her pain is relatively mild and without any obvious provocation or palliation. She denies any fever, chills nor nausea or vomiting. She is not dizzy nor weak or lightheaded. On December 16 she had an emergency and was found to have had a uterine rupture which was repaired. She denies dysuria, frequency or urgency. Related Data Home Medications Medication Instructions Recorded Confirmed prenat.vits,claudia,[id number] 1 tab PO DAILY 12/01/21 12/26/21 Previous Rx's Medication Instructions Recorded ferrous sulfate 325 mg (65 mg 325 mg PO DAILY #30 tab 12/16/21 iron) tablet oxycodone 5 mg tablet 5 mg PO Q6H PRN #20 tab 12/16/21 oxycodone 5 mg tablet 5 mg PO Q6HR #20 tab 12/18/21 cephalexin 500 mg capsule 500 mg PO BID #10 cap 01/02/22 Allergies Allergy/AdvReac Type Severity Reaction Status Date / Time Penicillins Allergy Mild Rash Verified 01/08/22 17:53 Review of Systems Review of Systems Narrative: GENERAL: Denies chills, fatigue, malaise, fever, sweats. HEENT: Denies sinus pain, ear pain, sore throat, difficulty swallowing, dizziness. RESPIRATORY: Denies dyspnea, cough, wheezing, hemoptysis, sputum. CARDIOVASCULAR: Denies chest pain, palpitations, orthopnea, edema, GASTROINTESTINAL: See HPI : See HPI MUSCULOSKELETAL: denies weakness, joint pain, or bony pain SKIN: Denies rash, skin lesions, or other NEUROLOGIC: Denies weakness, headache, numbness, change in speech, confusion, seizures, incoordination. PSYCHIATRIC: No concerning psychosocial issues. 12 point review of systems is negative except for those stated above Patient History Medical History Anxiety Bicornuate uterus Depression Gastric reflux Gastritis delivery UTI (urinary tract infection) Surgical History History of Family History Mother Diabetes mellitus Hypertension alcohol intake frequency: holidays/special occasions only Substance Use Type: does not use Exam Narrative Exam Narrative: GENERAL: [26] year old patient appears stated age. Well-developed patient, in mild distress. HEAD: Atraumatic. Normocephalic. EYES: Pupils equal round and reactive. Extraocular motions intact. No scleral icterus. No injection or drainage. ENT: Nose without bleeding, purulent drainage. Throat without erythema, tonsillar hypertrophy or exudate. Airway patent. NECK: Trachea midline. Non tender CARDIOVASCULAR: Regular rate and rhythm without murmurs, gallops, or rubs. RESPIRATORY: Clear to auscultation. Breath sounds equal bilaterally. No wheezes, rales, or rhonchi. GASTROINTESTINAL: Abdomen soft, mild RLQ pain without rebound our guarding, nondistended. EXTREMITIES: No edema or joint tenderness. BACK: Nontender without deformity or crepitance. No flank tenderness. NEURO: AOx3. SKIN: No rash or erythema of visible areas Initial Vital Signs Initial Vital Signs: Vital Signs Temperature 98.4 F 01/08/22 17:50 Pulse Rate 72 01/08/22 17:50 Respiratory Rate 16 01/08/22 17:50 Blood Pressure 123/74 01/08/22 17:50 Pulse Oximetry 99 01/08/22 17:50 Course Course Course Narrative: patient reports minimal (if any) bleeding currently, pelvic deferred Orders Ordered: ED Orders 01/08/22 18:15 Basic Metabolic Panel Stat Complete Blood Count AUTO DIFF Stat Type and Screen Stat 01/08/22 18:19 Urine Culture Stat Urine Microscopic Stat 01/08/22 18:43 CT abdomen pelvis w con Stat Vital Signs Vital signs: Vital Signs - 8 hr 01/08/22 17:50 01/08/22 19:29 Temperature 98.4 F Pulse Rate 72 88 Respiratory Rate 16 18 Blood Pressure 123/74 105/55 L Pulse Oximetry 99 100 MDM - Female Genitourinary Lab Data Result diagrams: 01/08/22 18:15 01/08/22 18:15 Labs: Lab Results 01/08/22 01/08/22 01/08/22 Range/Units 18:15 18:15 18:15 WBC 5.7 (4.5-11.0) X10^3/uL RBC 4.24 (4.0-5.2) X10^6/uL Hgb 11.5 L (12.0-16.0) g/dL Hct 34.8 L (36-46) % MCV 82.1 (80-100) fL MCH 27.1 (26-34) PG MCHC 33.0 (30-36) % RDW 15.3 H (11.6-14.8) % Plt Count 258 (150-400) X10^3/uL Neut % (Auto) 64.9 (50-75) % Lymph % (Auto) 28.6 (25-40) % [place] % (Auto) 5.3 (3-14) % Eos % (Auto) 0.7 L (2-4) % Baso % (Auto) 0.5 (0-2) % Neut # (Auto) 3700 (8197-5075) /uL Lymph # (Auto) 1600 (0498-7290) /uL [place] # (Auto) 300 (0-900) /uL Eos # (Auto) 0 (0-450) /uL Baso # (Auto) 0 (0-100) /uL Sodium 142 (137-145) mmol/L Potassium 4.0 (3.4-5.1) mmol/L Chloride 110 H (98-107) mmol/L Carbon Dioxide 25 (22-32) mmol/L BUN 12 (7-17) mg/dL Creatinine 0.51 L (0.52-1.04) mg/dL Estimated GFR > 60.0 (>60) mL/min BUN/Creatinine Ratio 23.5 H (6-22) Glucose 102 H (70-100) mg/dL Calcium 9.1 (8.4-10.2) mg/dL Urine RBC (0-5/HPF) Urine WBC (0-5/HPF) Ur Squamous Epith Cells (0-5/HPF) Amorphous Sediment Urine Bacteria (None) Urine Mucus (Negative) Ur Culture Indicated? Blood Type O Positive Antibody Screen Negative 01/08/22 Range/Units 18:19 WBC (4.5-11.0) X10^3/uL RBC (4.0-5.2) X10^6/uL Hgb (12.0-16.0) g/dL Hct (36-46) % MCV (80-100) fL MCH (26-34) PG MCHC (30-36) % RDW (11.6-14.8) % Plt Count (150-400) X10^3/uL Neut % (Auto) (50-75) % Lymph % (Auto) (25-40) % [place] % (Auto) (3-14) % Eos % (Auto) (2-4) % Baso % (Auto) (0-2) % Neut # (Auto) (9961-5414) /uL Lymph # (Auto) (6307-9260) /uL [place] # (Auto) (0-900) /uL Eos # (Auto) (0-450) /uL Baso # (Auto) (0-100) /uL Sodium (137-145) mmol/L Potassium (3.4-5.1) mmol/L Ch[place] (98-107) mmol/L Carbon Dioxide (22-32) mmol/L BUN (7-17) mg/dL Creatinine (0.52-1.04) mg/dL Estimated GFR (>60) mL/min BUN/Creatinine Ratio (6-22) Glucose (70-100) mg/dL Calcium (8.4-10.2) mg/dL Urine RBC 5-10/hpf H (0-5/HPF) Urine WBC 10-30/hpf H (0-5/HPF) Ur Squamous Epith Cells 5-10 /hpf H (0-5/HPF) Amorphous Sediment 1+ Urine Bacteria Few (2-10) H (None) Urine Mucus 2+ H (Negative) Ur Culture Indicated? Specimen cultured Blood Type Antibody Screen Urine Dip Bedside Urine Glucose Negative Bedside Urine Bilirubin - Negative Bedside Urine Ketone - Negative Urine Specific [place] 1.03 Bedside Urine Occult Blood +++ Bedside Urine pH 6.0 Bedside Urine Protein - Negative Bedside Urine Urobilinogen - Negative Bedside Urine Nitrite - Negative Bedside Urine Leukocytes +/- [address] scan - abdomen/pelvis: Radiologist's Impression: Launch?[address] [address] [address] Scan Report Signed Patient: Amairani Turpin MR#: [id number] : 1995 Acct:[id number] Age/Sex: 26 / F Date of Service: 01/08/22 Loc: ED Accession Number: [id number] ?? Procedure: CT abdomen pelvis w con Ordering Provider: Chuck Girard D.O. PROCEDURE:? CT ABDOMEN PELVIS W CON ? INDICATIONS:? RLQ pain, chills, bloating, vaginal bleeding, recent uterine ? TECHNIQUE:? After the administration of intravenous contrast, axial sections acquired from the lung bases to the pubic symphysis.? Coronal and sagittal reformats were performed.? For radiation dose reduction, the following was used:? automated exposure control, adjustment of mA and/or kV according to patient size.? ? COMPARISON:? None. ? FINDINGS:? Image quality:? Excellent.? ? Lung bases:? Unremarkable. Heart:? No significant findings. ? ABDOMEN: Liver:? Unremarkable.? ? Gallbladder:? Within normal limits. Biliary ducts:? Unremarkable.? ? Pancreas:? Unremarkable.? ? Spleen:? Unremarkable.? ? Adrenal Glands:? Unremarkable.? ? Kidneys and Ureters:? Unremarkable.? ? ? Stomach and Bowel:? Stomach, small bowel loops, and colon are unremarkable.? Appendix is visualized and is within normal limits.? Mild fecal stasis throughout the colon is seen. Peritoneum:? No abnormal intraperitoneal fluid.? No free air.? ? Ventral Wall: ? No hernias.? Abdominal Nodes:? No retroperitoneal or mesenteric adenopathy by size criteria.? Vessels:? Aorta and inferior vena cava are normal in size.? ? PELVIS: Pelvic Organs:? No gross abnormality is seen in uterus and left adnexa.? There is suggestion of a right ovarian cyst measures 2.2 x 1.8 cm in size. Bladder:? Unremarkable.? ? Pelvic Nodes: No enlarged lymph nodes.? Miscellaneous: No hernias are seen. ? ? ? Bones:? No suspicious bony lesion.? No acute vertebral body compression fracture. ? ? IMPRESSION:? 1.? Normal appendix.? Mild constipation.? No abnormal bowel wall thickening.? No free fluid or free air. 2. No renal stone or hydronephrosis. 3.? Suggestion of right ovarian cyst as above.? ? ? Dictated by: Tye Bee M.D. on 01/08/2022 at 19:11 ? ? Approved by: Tye Bee M.D. on 01/08/2022 at 19:14 ? [facility] Narrative Medical decision making narrative: Patient with right lower quadrant pain and the passage of minimal clots. She shows no signs of sepsis, labs are reassuring, she is not dizzy nor weak or lightheaded. Pain is well controlled and she is tolerating orals. Imaging notes ovarian cyst. Urine notes white cells but patient has no dysuria, frequency or urgency. Will await final results. Return precautions given, questions answered to her apparent satisfaction. Discharge Plan Departure Patient Disposition: Home Clinical Impression: Cyst of right ovary Activity Restrictions/Additional Instructions: *You have been diagnosed with [right ovarian cyst. As we discussed her history, physical exam, labs and CT scan are very reassuring. There is no evidence of significant abnormality in her pelvis, uterus looks normal and there is no evidence of internal bleeding. *What to do: *Please continue to take your regular medications as directed. [ ] New medication prescriptions sent to your pharmacy: [ ] [ ] New medication written as a paper prescription [ x] No new medications given *Please follow up with your primary care provider in 2-3 days, call for an appointment. Let them know you were seen in the Emergency Department and that we ask that you be seen in follow up. We will electronically transmit a record of today's note if your PCP is in our system *If you do not have a primary care provider please contact the [facility] line at [phone]. They will ask some questions about your medical history and help get you set up with a doctor in the community. *Return to Emergency Department if you should have any new, worsening or concerning symptoms, such as [fever greater than 101 F, shaking chills, worsening pain, persistent vomiting or other bothersome symptoms] Prescriptions: No Action cephalexin 500 mg capsule 500 mg PO BID Qty: 10 0RF prenat.vits,claudia,[id number] Tablet 1 tab PO DAILY 0RF oxycodone 5 mg tablet 5 mg PO Q6H PRN (Reason: pain) Qty: 20 0RF Rx Instructions: Take as often as every 6 hours for pain. ferrous sulfate 325 mg (65 mg iron) tablet 325 mg PO DAILY Qty: 30 3RF Rx Instructions: Take daily with food. oxycodone 5 mg tablet 5 mg PO Q6HR Qty: 20 0RF Referrals: [place],MD Mag [Physician] - Miscellaneous,MD Walt [Primary Care Provider] -
--- NOTE | 2022-01-08 18:43 | DI.CT.S_ITS ---
PROCEDURE: CT ABDOMEN PELVIS W CON INDICATIONS: RLQ pain, chills, bloating, vaginal bleeding, recent uterine TECHNIQUE: After the administration of intravenous contrast, axial sections acquired from the lung bases to the pubic symphysis. Coronal and sagittal reformats were performed. For radiation dose reduction, the following was used: automated exposure control, adjustment of mA and/or kV according to patient size. COMPARISON: None. FINDINGS: Image quality: Excellent. Lung bases: Unremarkable. Heart: No significant findings. ABDOMEN: Liver: Unremarkable. Gallbladder: Within normal limits. Biliary ducts: Unremarkable. Pancreas: Unremarkable. Spleen: Unremarkable. Adrenal Glands: Unremarkable. Kidneys and Ureters: Unremarkable. Stomach and Bowel: Stomach, small bowel loops, and colon are unremarkable. Appendix is visualized and is within normal limits. Mild fecal stasis throughout the colon is seen. Peritoneum: No abnormal intraperitoneal fluid. No free air. Ventral Wall: No hernias. Abdominal Nodes: No retroperitoneal or mesenteric adenopathy by size criteria. Vessels: Aorta and inferior vena cava are normal in size. PELVIS: Pelvic Organs: No gross abnormality is seen in uterus and left adnexa. There is suggestion of a right ovarian cyst measures 2.2 x 1.8 cm in size. Bladder: Unremarkable. Pelvic Nodes: No enlarged lymph nodes. Miscellaneous: No hernias are seen. Bones: No suspicious bony lesion. No acute vertebral body compression fracture. IMPRESSION: 1. Normal appendix. Mild constipation. No abnormal bowel wall thickening. No free fluid or free air. 2. No renal stone or hydronephrosis. 3. Suggestion of right ovarian cyst as above. Dictated by: Tye Bee M.D. on 01/08/2022 at 19:11 Approved by: Tye Bee M.D. on 01/08/2022 at 19:14
[2022-01-08 18:46] LABS: Amorphous Sediment Urine 1+; Bacteria Urine Few (2-10); Culture Indicated Urine Specimen Cultured; Mucus Urine 2+ (Negative); RBC Urine 5-10/HPF (0-5/HPF); Squamous Epithelial Cell Urine 5-10 /HPF (0-5/HPF); WBC Urine 10-30/HPF (0-5/HPF)
[2022-01-08 19:04] LABS: Add Manual Diff / Slide Review NO; Basophils Absolute Auto 0 /uL (0-100); Basophils Percent Auto 0.5 % (0-2); Eosinophils Absolute Auto 0 /uL (0-450); Eosinophils Percent Auto 0.7 % (2-4); Hematocrit 34.8 % (36-46); Hemoglobin 11.5 g/dL (12.0-16.0); Lymphocytes Absolute Auto 1600 /uL (1100-4500); Lymphocytes Percent Auto 28.6 % (25-40); Mean Corpuscular Hemoglobin 27.1 PG (26-34); Mean Corpuscular Volume 82.1 fL (80-100); Monocytes Absolute Auto 300 /uL (0-900); Monocytes Percent Auto 5.3 % (3-14); Neutrophils Absolute Auto 3700 /uL (1500-7000); Neutrophils Percent Auto 64.9 % (50-75); Platelet Count 258 X10^3/uL (150-400); Red Blood Cell Count 4.24 X10^6/uL (4.0-5.2); Red Cell Distribution Width 15.3 % (11.6-14.8); White Blood Cell Count 5.7 X10^3/uL (4.5-11.0)
[2022-01-08 19:21] LABS: BUN Creatinine Ratio 23.5 (6-22); Blood Urea Nitrogen 12 mg/dL (7-17); Calcium 9.1 mg/dL (8.4-10.2); Carbon Dioxide 25 mmol/L (22-32); Chloride 110 mmol/L (98-107); Estimated Glomerular Filt Rate > 60.0 mL/min (>60); Glucose 102 mg/dL (70-100); HEMOLYSIS < 15 (0-50); Sodium 142 mmol/L (137-145)
[2022-01-08 19:29] VITALS: BP 105/55; PULSE 88; RESP 18; O2SAT 100
== END 2022-01-08 19:30 | disposition home or self-care (01) ==
PROVIDERS: Emergency Medicine; Emergency Provider Emergency Medicine
DX: N83.201 Unspecified ovarian cyst, right side (principal)
CPT/HCPCS: 36415; 74177; 80048; 81003; 81015; 85025; 86850; 86900; 86901; 87077; 87086; 87186; 99283; 99284; Q9967

== ENCOUNTER → 2022-01-24 10:54 | Outpatient (CLI) | payer OTHER, SELFPAY | PROVIDERS: Visit Provider Obstetrics & Gynecology | DX: N39.0 Urinary tract infection, site not specified (principal) | CPT/HCPCS: 87077; 87086; 87186 ==

== ENCOUNTER → 2022-02-13 14:15 | Outpatient (CLI) | payer OTHER, SELFPAY ==
[2022-02-13 15:24] LABS: Appearance Urine UA CLOUDY; Bilirubin Urine UA NEGATIVE (NEGATIVE); Color Urine UA YELLOW; Glucose Urine UA NEGATIVE (Negative); Ketones Urine UA TRACE (NEGATIVE); Leukocyte Esterase Urine UA NEGATIVE (NEGATIVE); Nitrite Urine UA NEGATIVE (Negative); Occult Blood Urine UA TRACE-LYSED (Negative); Protein Urine UA TRACE (Negative); Specific Gravity Urine UA >=1.030 (1.000-1.035); Urobilinogen Urine UA 0.2 E.U./dL (0.2)
[2022-02-13 15:34] LABS: Amorphous Sediment Urine 1+; Bacteria Urine None Seen; Culture Indicated Urine Cult Not Indicated; RBC Urine None Seen (0-5/HPF); WBC Urine None Seen (0-5/HPF)
== END ==
PROVIDERS: Obstetrics & Gynecology; Referring Provider Specialist; Visit Provider Specialist
DX: R30.0 Dysuria (principal)
CPT/HCPCS: 81001

== ENCOUNTER → 2022-02-24 16:43 | Outpatient (CLI) | payer OTHER, SELFPAY ==
[2022-02-27 04:11] LABS: Candida species Negative (Negative); Gardnerella vaginalis Positive (Negative); Trichomoas vaginalis Negative (Negative)
== END ==
PROVIDERS: Visit Provider Obstetrics & Gynecology
DX: R30.0 Dysuria (principal); N89.8 Other specified noninflammatory disorders of vagina
CPT/HCPCS: 87086; 87480; 87510; 87660

== ENCOUNTER 2022-11-23 12:13 | Day surgery (SDC) | payer OTHER, SELFPAY ==
[2022-11-21 11:50] VITALS: BMI 32.1
[2022-11-23] VITALS (9 sets, daily range): BP systolic 105–138; BP diastolic 72–92; PULSE 72–88; RESP 13–20; TEMP 36.2–37.1; O2SAT 93–98; BMI 33.0
[2022-11-23] MEDS: OXYMETAZOLINE NASAL SPRAY 15 ML 2 SPRAYS NASAL ×2 (13:23→14:59)
[2022-11-23] MEDS: LACTATED RINGERS 1,000 ML 42 ML IV (13:31)
--- NOTE | 2022-11-23 13:58 | P.HP_ITS ---
History of Present Illness History of Present Illness Time Patient Seen: 13:58 Chief complaint: Septoplasty Narrative: 27-year-old female last seen in clinic 08/29/2022 for complaint of bilateral nasal obstruction, septal deviation and some turbinate hypertrophy, possible internal nasal valve restriction, presents for septoplasty and inferior turbinate reduction with possible internal nasal valve release. She was diagnosed with presumably mild ELAINA in the interim and has not yet begun CPAP. No other health changes, no cough cold or fever. Patient History Medical History Anemia Anxiety Bicornuate uterus Depression Gastric reflux Gastritis GERD (gastroesophageal reflux disease) Incomplete emptying of bladder Nasal obstruction delivery UTI (urinary tract infection) Surgical History H/O abdominal hysterectomy History of Family & Social History Family History Mother Diabetes mellitus Hypertension Social History: household members spouse,children Tobacco & Substance use: Smoking Status Never smoker alcohol intake former alcohol intake frequency holiday/special occasion Substance Use Type does not use Meds Home Medications and Allergies Home Medications Medication Instructions Recorded Confirmed Type sertraline 50 mg tablet 50 mg PO DAILY 01/24/22 11/23/22 Rx depression #30 tabs bupropion HCl (smoking deter) 150 150 mg PO DAILY 11/23/22 11/23/22 History mg tablet,12 hr sustained-release(smoking deterrent) hydroxyzine HCl 10 mg tablet 10 mg PO DAILY 11/23/22 11/23/22 History Allergies Allergy/AdvReac Type Severity Reaction Status Date / Time Penicillins Allergy Mild Rash Verified 11/23/22 13:00 Review of Systems Review of Systems Narrative: Negative except as listed in the HPI Exam Vital Signs (past 8 hours): - 11/23/22 13:07 Temperature 98.8 F Pulse Rate 73 Respiratory Rate 16 Blood Pressure 109/77 Pulse Oximetry 98 Oxygen Delivery Method Room Air Oxygen Delivery Method Room Air Narrative Exam Narrative: Well-developed well-nourished female in no acute distress. Heart regular rate and rhythm without murmur, lungs clear to auscultation bilaterally Assessment & Plan Assessment & Plan narrative: Assessment: Nasal airway obstruction, septal deviation, inferior turbinate hypertrophy, possible internal nasal valve restriction, allergic rhinitis, ELAINA Plan: Following discussion of the material risks benefits complications and alternatives, the patient elected to proceed with septoplasty and bilateral inferior turbinate reduction, possible internal nasal valve release, as out patient. Time Spent With Patient Critical Care time: I spent a total of [] minutes of critical care time on this patient's care today; this time is exclusive of procedural time.
--- NOTE | 2022-11-23 13:58 | PM.PREOP ---
Pre-operative Note Interval Note History & Physical reviewed/Exam performed by Physician: Yes Changes to H&P: No
--- NOTE | 2022-11-23 14:00 | P.OP_ITS ---
Operative Date/Time/Diagnoses Date of procedure: 11/23/22 Time of procedure: 15:28 Pre-op diagnosis: Nasal airway obstruction, septal deviation, inferior turbinate hypertrophy, possible internal nasal valve restriction, allergic rhinitis, ELAINA Post-op diagnosis: same (No INV restriction at completion) Procedure & Clinicians Procedure: 1. Septoplasty 2. Bilateral inferior turbinate reduction via intramural cautery Same procedure as scheduled: Yes Indications: 27 Year old with the above diagnoses incompletely managed with medical therapy presents for the above procedure. Following discussion of the material risks benefits complications and alternatives, the parents elected to proceed. Surgeon: Kian Carson Click Yes if Unassisted: Yes Anesthesia Type: General and Local Operative Notes Findings: 1 to 2+ right anterior septal deviation, 1-2+ left posterior including septal spur Estimated Blood Loss (mL): 30 Procedure in detail: Following identification and confirmation of consent as well as preoperative Afrin nasal spray, the patient was brought to the operating room suite and placed in the supine position. General endotracheal anesthesia was administered. I infiltrated the septum widely bilaterally with 1% lidocaine 1 100,000 epinephrine followed by temporary packing with cotton with Afrin and 4% lidocaine. Following sterile prep and drape, the packing was removed and I performed a right maci-transfixion incision, elevated the right mucoperichondrial and mucoperiosteal flap. I disarticulated near the bony/cartilaginous junction and elevated the left mucoperiosteal flap. Deviated portions of the perpendicular plate of the ethmoid and vomer were resected. The residual quadrilateral cartilage was further straightened by trimming it inferiorly as well as reducing the maxillary crest. A 2 mm strip of cartilage paralleling the residual 1 cm dorsal and caudal strut was resected to further straighten the quadrilateral cartilage. The hemitransfixion incision was closed with interrupted 5 0 chromic followed by a running 4 0 plain gut mattress suture to reapproximate the septal flaps. At case completion, 20/1000th of an inch silastic splints were placed bilaterally, sutured anteriorly with a single 4 0 nylon. The head of each inferior turbinate had been previously infiltrated with additio nal local anesthetic and a 25 gauge spinal needle was used to impale the length of the turbinate, with cautery on a setting of 15 activated on slow withdrawal over 2 passes. The turbinates were then outfractured. The procedure completed, sponge and needle counts were correct and the patient was extubated in the operating room and taken to recovery room in stable condition without known complication. Complications: none Post-operative Condition: stable Disposition: same day surgery Plan for aftercare: Nasal saline every hour while awake, begin irrigations t.i.d. tomorrow if desired. Polysporin to the nostrils at all times, Tylenol alternating with Advil for pain control, oxycodone for breakthrough pain. Elevate head of bed, no nose blowing, no straining for 2 weeks. Ice directly under the nose on the upper lip has tolerated 24-48 hours at a minimum. Follow-up in 1 week for nasal splint removal.
--- NOTE | 2022-11-23 14:48 | SUR.OPER ---
Supine on padded OR bed, head on gel doughnut, arms padded and tucked at sides, legs uncrossed, safety belt at thigh, tape over blanket over lower legs .
[2022-11-23] MEDS: LIDOCAINE 1% W/EPI 20 ML INJ (14:59)
[2022-11-23] MEDS: LIDOCAINE 4% SOLN 50 ML 20 ML TOP (15:00)
[2022-11-23] MEDS: HYDROCODONE/ACET 5/325 TABLET 1 TAB PO ×2 (16:02→16:54)
[2022-11-23] MEDS: ONDANSETRON 4 MG ODT SL (17:12)
== END 2022-11-23 17:19 | disposition home or self-care (01) ==
PROVIDERS: PCP Student in an Organized Health Care Education/Training Program; Referring Provider Otolaryngology; Visit Provider Otolaryngology
PROC: (CPT 30520; principal; 2022-11-23 13:30)
DX: J34.2 Deviated nasal septum (principal); J34.89 Other specified disorders of nose and nasal sinuses; J30.9 Allergic rhinitis, unspecified; J34.3 Hypertrophy of nasal turbinates; J98.8 Other specified respiratory disorders; G47.33 Obstructive sleep apnea (adult) (pediatric)
CPT/HCPCS: 30520; 30802; 81025; J1100; J2250; J2405; J2704; J3010